=== PATIENT | male | born 2005 | race Two or more races ===

== ENCOUNTER 2024-06-09 20:11 | Emergency (ER) | payer SELFPAY ==
[2024-06-09 20:13] VITALS: BP 170/102; PULSE 160; RESP 18; TEMP 37.2; O2SAT 99
[2024-06-09 20:19] VITALS: BMI 25.7
--- NOTE | 2024-06-09 20:25 | EDNOTE_ITS ---
ED Medical Clearance RME/HPI General Chief complaint: Medical Clearance Stated complaint: MEDICAL CLEARANCE Time Seen by Provider: 06/09/24 20:24 Arrival date/time: 06/09/24 20:11 CC: Rapid heart rate medical clearance HPI patient presents to the ER via PD in handcuffs stating the heart rate is too high patient is speaking in rapid sentences subject matter is not relative to questions that are asked. Patient is observed ambulating without complication. Review of Systems Review of Systems Narrative Review of Systems: GEN: No fever, no chills, no weight loss EYES: No discharge, no visual changes, no pain HEENT: No ear pain, no congestion, no sore throat PULM: No shortness of breath, no cough, no congestion CV: No chest pain, no dyspnea on exertion, no palpitations GI: No nausea, no vomiting, no diarrhea, no pain, no constipation : No frequency, no urgency, no dysuria MUSC/SKEL: No joint pain, no back pain SKIN: No rash PSYCH: No hallucinations, no depression HEME/LYMPH: No easy bleeding or bruising tendencies NEURO: No weakness, no headache Past Medical History Past Medical History CARDIAC: Negative Congestive Heart Failure RESPIRATORY: Negative Chronic Obstructive Pulmonary Disease (COPD) GENITOURINARY: Negative Renal Disease ENDOCRINE: Negative Diabetes Mellitus Type 1 or Diabetes Mellitus Type 2 Social History SMOKING STATUS: Never smoker ED Exam Narrative Physical exam: [General: Fidgety but not agitated not in any acute distress Head normocephalic HEENT: Within acceptable limits Neck is supple nontender Chest equal chest rise nontender to palpation Respiratory: Clear to auscultation no wheezes crackles or rubs CV: Rate rhythm is regular, tachycardic, no murmurs rubs or clicks Abdomen is soft nontender no masses positive bowel sounds all 4 quadrants Back: No CVA tenderness no spinous process tenderness from cervical spine thoracic and lumbar spine Skin: Intact no petechiae rash induration ulceration or crepitus Extremities: Moving all extremity against resistance cap refill less than 2 seconds neurosensory intact Neuro: Awake alert oriented x2, person and place, Glascow coma 15 no focal deficits] flight of thoughts, speaking rapidly. Course Quality Measures none Orders Category Date Time Status Diazepam [Valium] Med 06/09/24 20:22 Discontinued 20 mg PO X1 ONE Vital Signs Vital signs: Vital Signs Temperature 98.9 F 06/09/24 20:13 Pulse Rate 160 H 06/09/24 20:13 Respiratory Rate 18 06/09/24 20:13 Blood Pressure 170/102 H 06/09/24 20:13 Pulse Oximetry (%) 99 06/09/24 20:13 Oxygen Delivery Method Room Air 06/09/24 20:13 Medical Clearance Patient data External records reviewed:: [facility] previous records Clinical information provided by:: patient and law enforcement Social determinants that could affect healthcare access:: substance use Patient has the following chronic illnesses:: None How is presenting disease/condition affected by chronic disease/condition?: uneffected by Evaluation data The following diagnostics were reviewed and interpreted by me:: other (specify) (None) Lab and/or radiology exams considered but not ordered:: None Interpretation Summary: 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 (list below): No Diagnosis Medical Clearance Differential Diagnosis: other Most likely diagnosis given after review of the tests above:: Medical clearance Admission Indicated Admission indicated?: not indicated Explain why admission is indicated or not indicated:: Cleared for senior living Admission Request Was there a request for admission?: No Disposition Plan Disposition Plan: Discharge Discharge Attestation Discharge Attestation: The patient and all family members were given an opportunity to ask questions and understood the discharge instructions. Discharge instructions specifically effects, indications for sooner follow up or return to the emergency department, and the expected course of current diagnosis. Patient condition: Stable Discharge Plan Plan Patient Disposition: Prison/Court/Law Patient condition on transfer: Stable Problem List Clinical Impression: Medical clearance for incarceration, Tachycardia Patient/Caregiver Discharge Instructions Print Language: Faroese JIMMIE/QUENTIN Supervising Physician ALCIRA Supervising Physician: Grzegorz Espinal ENP
[2024-06-09] MEDS: DIAZEPAM 5 MG TABLET 20 MG PO (20:27)
[2024-06-09 22:18] VITALS: PULSE 150; RESP 18; O2SAT 99
--- NOTE | 2024-06-09 23:24 | PD.EDADDENDU ---
Emergency Room Addendum <Rina Lambert - Last Filed: 06/09/24 23:27> Addendum Narrative: 2300: Care assumed from Grzegorz Espinal NP. Past medical, surgical, social and family history reviewed. Vitals and home medications reviewed. Results and treatment plan discussed. I will assume the care of the patient at this time and will follow the patient, pending re-evaluation. Please refer to the emergency department record for history and examination from initial visit. 2326: Repeat HR is 130. Patient is stable to be discharged to the long term. <Jessy Burroughs MD - Last Filed: 06/09/24 23:36> Addendum Narrative: 2300: Care assumed from Grzegorz Espinal NP. Past medical, surgical, social and family history reviewed. Vitals and home medications reviewed. Results and treatment plan discussed. I will assume the care of the patient at this time and will follow the patient, pending re-evaluation. Please refer to the emergency department record for history and examination from initial visit. HR 130.
[2024-06-09 23:26] VITALS: BP 127/94; PULSE 130; RESP 17; TEMP 37; O2SAT 97
[2024-06-09 23:53] VITALS: BP 127/94; PULSE 130; RESP 17; TEMP 37; O2SAT 97
== END 2024-06-09 23:54 ==
LOC: SERX 21:11
PROVIDERS: Emergency Provider Emergency Medicine
DX: Z02.89 Encounter for other administrative examinations (principal); R00.0 Tachycardia, unspecified
CPT/HCPCS: 99282; A9270